=== PATIENT | female | born 1980 | race Caucasian/White ===

== ENCOUNTER 2023-02-25 08:36 | Outpatient (AMB) | payer OTHER, SELFPAY ==
--- NOTE | 2023-02-25 08:39 | MHC.OFFVIS ---
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 Pt reports difficulty falling asleep and staying sleep. Pt takes Xanax 0.5 mg around 9:30 pm and fall asleep around 11 pm. She wakes up about at 1;30 am, can't go back to sleep. She usually does something when she wakes up, walking around her room or cleaning the house,etc. She can't have a full 8 hrs sleep. She only can sleep on her left side due to right neck pain. Pt states that she tried sleep hygiene and cognitive behavior therapy. Pt had a home sleep study done, and the result was significant for mild degree of sleep apnea. The AHI was 10/hr and oxygen shivani was 67%. Pt states that she can't sleep with mask, and also does not want to try mandibular device to treat mild degree of sleep apnea. Sleep questionnaire: Have you ever been diagnosed with a sleep disorder? Yes, TATO. Have you ever had a sleep study in the past? Yes, home sleep study. Have you ever been treated for a sleep disorder? No. Do you take medications for a sleep disorder? Yes, xanax 0.25 mg but it does not help her to stay sleep. Do you snore? Yes. Do you wake up gasping at night? Not really. Do you have episodes of apneas? Yes. If yes, are they witnessed? Yes. Do you have episodes of nocturnal chest pain or dyspnea? No. Do you have difficulty initiating sleep? Yes. Do you have difficulty maintaining sleep? Yes. Do you wake up tired? Yes. Do you have headaches upon awakening? Yes. Do you wake up with dry mouth or throat? Yes. Do you have GERD? No. Do you have nocturia? Yes. Do you have nocturnal leg cramps? No. Do you have symptoms of restless legs? No. Do you act out your dreams? No. Sleep hygiene questionnaire: What is your usual sleep routine? Usual bedtime is at 9:30-10 pm; Usual wake up time is at every 1-2 hrs. Do you take naps? No. Is your sleep environment cool, dark, and quiet? Yes. Do you exercise? Yes, 5 am. Do you take caffeine or other stimulants? 1 cup of coffee in the morning. Do you use electronics in bed? No. What is your work schedule? 9-5 Hypersomnolence questionnaire: Do you have daytime tiredness or fatigue? Yes, feel foggy. Do you easily fall asleep when inactive? No. Have you ever had episodes of sudden weakness? No. Have you ever had episodes of sudden weakness associated with strong emotions? No. PFSH Surgical History (Updated 02/25/23 @ 08:44 by Марина Bejarano CMA) S/P emergency Hx of tonsillectomy S/P gastric sleeve procedure Family History (Updated 02/25/23 @ 08:47 by Марина Bejarano CMA) Father Cancer Mother Cancer Rheumatoid arthritis Family/Other Rheumatoid arthritis Social History (Updated 02/25/23 @ 08:47 by Марина Bejarano CMA) Alcohol intake: current Alcohol intake frequency: holidays/special occasions only Patient Tobacco Use Status: Never used Tobacco Review of Systems Const All systems reviewed & are unremarkable except as noted in HPI and below ENT Reports Normal hearing present Neuro Reports Normal hearing present Physical Exam Vital Signs: Last Vital Signs Pulse 78 02/25/23 08:48 BP 112/82 02/25/23 08:48 Pulse Ox 98 02/25/23 08:48 Oxygen Delivery Method Room Air 02/25/23 08:48 BMI result Body Mass Index 35.1 Const General: cooperative Nutritional Appearance: obese Orientation/consciousness: patient oriented x3 Neck Neck: Yes full ROM and Yes supple Resp Effort & Inspection: normal respiratory effort and able to speak in complete sentences Neuro General: patient oriented x3 and gait normal Cranial nerves: Yes Bilaterally intact EOM present, Yes Normal facial strength present, Yes Midline tongue present, Yes Symmetric palate elevation present, Yes Normal hearing present, Yes Ability to bilaterally rotate head present and Yes Ability to bilaterally elevate shoulders present Cognition (Neuro): normal cognition Gait exam (Neuro): Normal gait present Motor exam (neuro): 5/5 motor strength present throughout, Pronator motor function not present and no tremor noted Psych Appearance: grossly normal Mental Status: mental status grossly normal Affect: Anxious affect present Attitude: cooperative Assessment & Plan Assessment & Plan (1) Sleep apnea: Comment: Not tolerated CPAP Code(s): G47.30 - Sleep apnea, unspecified (2) Sleep difficulties: Code(s): G47.9 - Sleep disorder, unspecified (3) Insomnia: Code(s): G47.00 - Insomnia, unspecified Plan Pt is advised to undergo in lab sleep study to assess for sleep apnea, sleep related movement disorder and sleep efficiency. Will f/u with pt after study to discuss results and appropriate treatment options. Advised patient to read Say Good Night to Insomnia and practice the 6 weeks sleep hygiene program. Advised patient to try amitriptyline 25 mg qHS to promote sleep and manage body ache. May try Calm Sleep supplement. Pt to call with any worsening concerns or questions. Orders: Orders RT PSG in-lab sleep study 02/25/23 G47.00 - Insomnia, unspecified, G47.30 - Sleep apnea, unspecified, G47.9 - Sleep disorder, unspecified Medications: New amitriptyline 25 mg PO BEDTIME 30 days 30 tabs 2RF Coding Level of Care Code New Pt Level 4 (12651) Diagnoses Sleep apnea G47.30 Sleep difficulties G47.9 Insomnia G47.00
[2023-02-25 08:48] VITALS: BP 112/82; PULSE 78; O2SAT 98; BMI 35.1
== END 2023-02-25 09:33 | disposition home or self-care (01) ==
PROVIDERS: PCP Registered Nurse; Visit Provider Nurse Practitioner Family
DX: G47.30 Sleep apnea, unspecified (principal); G47.9 Sleep disorder, unspecified; G47.00 Insomnia, unspecified
CPT/HCPCS: 99204

== ENCOUNTER → 2023-02-25 08:36 | Outpatient (BNVA) | payer OTHER, SELFPAY | PROVIDERS: PCP Registered Nurse; Visit Provider Nurse Practitioner Family ==

== ENCOUNTER 2023-06-04 08:00 | Outpatient (AMB) | payer OTHER, SELFPAY ==
--- NOTE | 2023-06-04 08:06 | MHC.OFFVIS ---
Intake Vital Signs 06/04/23 08:10 Height 5 ft 7 in Intake Visit Reasons: 3 mo f/u - Insomnia-LVM Intake Note: Patient presents for 3 month f/u. Patient under a lot of back pain and refuse vitals. Allergies Vicaden Allergy (Severe, Uncoded 02/25/23 08:41) Itchy excessivly HPI HPI Comments History of Present Illness Details 43 y/o female patient presents for follow up of insomnia. Pt reports she tried Linesta, but still had difficulty staying sleep. She wakes up about at 1;30 am, can't go back to sleep. She usually does something when she wakes up, walking around her room or cleaning the house,etc. Pt also tried amitriptyline 25 mg, and she sleeps a little better with it. Pt is in processing for breast reduction surgery. She lost 30 lb so far, and need to lose another 30 lb to have the surgery. She does exercise daily. Pt reports she tweaked her back while she was shower. Had lumbar x-ray done, was told that degenerative disc. Pt has physical therapy that scheduled on Friday. Pt having lower back burning pain, it radiated to bilateral lower extremities, but worse on her right. The burning pain caused disrupted sleep, too. [facility] Surgical History S/P emergency Hx of tonsillectomy S/P gastric sleeve procedure Family History Father Cancer Mother Cancer Rheumatoid arthritis Family/Other Rheumatoid arthritis Social History Alcohol intake: current Alcohol intake frequency: holidays/special occasions only Patient Tobacco Use Status: Never used Tobacco Review of Systems Const All systems reviewed & are unremarkable except as noted in HPI and below ENT Reports Normal hearing present Neuro Reports Normal hearing present Physical Exam Const General: cooperative Nutritional Appearance: obese Orientation/consciousness: patient oriented x3 Neck Neck: Yes full ROM and Yes supple Resp Effort & Inspection: normal respiratory effort and able to speak in complete sentences Neuro General: patient oriented x3 and gait normal Cranial nerves: Yes Bilaterally intact EOM present, Yes Normal facial strength present, Yes Midline tongue present, Yes Symmetric palate elevation present, Yes Normal hearing present, Yes Ability to bilaterally rotate head present and Yes Ability to bilaterally elevate shoulders present Cognition (Neuro): normal cognition Gait exam (Neuro): Normal gait present Motor exam (neuro): 5/5 motor strength present throughout, Pronator motor function not present and no tremor noted Deep tendon reflexes (DTR's): Right patellar reflex intensity grade: 4+ and Left patellar reflex intensity grade: 3+ Psych Appearance: grossly normal Mental Status: mental status grossly normal Affect: Anxious affect present Attitude: cooperative Assessment & Plan Assessment & Plan (1) Sleep apnea: Comment: Not tolerated CPAP Code(s): G47.30 - Sleep apnea, unspecified (2) Sleep difficulties: Code(s): G47.9 - Sleep disorder, unspecified (3) Insomnia: Code(s): G47.00 - Insomnia, unspecified (4) Back pain due to injury: Code(s): M54.9 - Dorsalgia, unspecified Plan Advised patient to try amitriptyline 25 mg qHS to promote sleep and manage body ache. Advised patient to read Say Good Night to Insomnia and practice the 6 weeks sleep hygiene program. Start physical therapy for back pain and will consider MRI after physical therapy. Pt to call with any worsening concerns or questions. Medications: Discontinued eszopiclone (Lunesta) Discontinued Reason: Doctor's Order 1 mg PO BEDTIME 30 days 30 tabs 1RF Coding Level of Care Code Est Pt Level 4 (18335) Diagnoses Sleep apnea G47.30 Sleep difficulties G47.9 Insomnia G47.00 Back pain due to injury M54.9
== END 2023-06-04 08:51 | disposition home or self-care (01) ==
PROVIDERS: PCP Registered Nurse; Visit Provider Nurse Practitioner Family
DX: G47.30 Sleep apnea, unspecified (principal); G47.9 Sleep disorder, unspecified; G47.00 Insomnia, unspecified; M54.9 Dorsalgia, unspecified
CPT/HCPCS: 99214

== ENCOUNTER → 2023-06-04 08:00 | Outpatient (BNVA) | payer OTHER, SELFPAY | PROVIDERS: PCP Registered Nurse; Visit Provider Nurse Practitioner Family ==